=== PATIENT | female | born 1935 | race Caucasian/White ===

== ENCOUNTER 2021-04-13 09:31 | Inpatient (IN) | payer MEDICARE, BC ==
[2021-04-13] VITALS (29 sets, daily range): BP systolic 78–158; BP diastolic 50–87
[~2021-04-13] VITALS: Ht 157.5 cm; Wt 35.8 kg
--- NOTE | ~2021-04-13 | CON ---
[address] [address] CONSULTATION Name: SOSA ARAIZA Room: [address] IN M.R.#: [id number] Admission: 04/13/21 Attend Phys: Mirta Toribio Discharge: Date of : 37 Report #: [id number] THIS REPORT FOR: cc: Bharat Haines MD, Jason MD [place], Roxane S. DO ~ DATE OF CONSULTATION: 04/24/2021 NEUROLOGY CONSULT HISTORY OF PRESENT ILLNESS: The patient is an 85-year-old female we were asked to see in consultation for altered mental status. The day the consult was requested, the patient was noted to have a pCO2 on her blood gas of 116. Now, the patient is on BiPAP, her pCO2 is 70 and she is more responsive. The patient is short of air and cannot provide a history without taking off the BiPAP, which she was not asked to do. The history was obtained from the chart. The patient was admitted to the hospital on 04/13 with tachypnea and a respiratory rate of 40. At that time, her O2 saturation was 50% on 4 liters of oxygen. The patient was admitted and was intubated for approximately 5 days. Even while she was on the ventilator, she appeared to be able to follow simple commands. The patient has been seen by Pulmonary and has been given a diagnosis of acute on chronic hypoxemic and hypercarbic respiratory failure. The patient has been noted to have significant CO2 retention and when the patient had a blood gas done on 04/24 at 12:15 a.m., her pCO2 was 116. This morning, her pCO2 is 70.5. PAST MEDICAL HISTORY: Chronic respiratory failure. PAST SURGICAL HISTORY: Negative. CURRENT MEDICATIONS: Include Eliquis 2.5 mg b.i.d., BuSpar 5 mg t.i.d., diltiazem drip, lactobacillus t.i.d., Prevacid 30 mg at dinner, Xopenex q.8 hours, melatonin 10 mg at bedtime, methylprednisolone 20 mg IV daily. ALLERGIES: None. PHYSICAL EXAMINATION: VITAL SIGNS: Temperature 36.2, pulse rate 79, respiratory rate 20, blood pressure 112/70, bedside pulse oximetry 97% on BiPAP. LABORATORY DATA: Hematology: White blood cell count 7.1, hemoglobin 11.3, hematocrit 35.3, MCV 92.9, platelet count 80,000. INR 1.1. Urinalysis: 2+ protein. Blood gas as of 8:25 a.m., pH 7.387, pCO2 of 70.5, pO2 of 85.2, oxygen saturation 96.1%. ABG as of 04/24 at 12:15 a.m., pH 7.225, pCO2 of 116, pO2 of 42.8, oxygen saturation 76%. [place] [address] CONSULTATION Name: SOSA ARAIAZ Room: [address] IN [facility].#: [id number] Admission: 04/13/21 Attend Phys: Mirta Toribio Discharge: Date of : 37 Report #: [id number] IMAGING: CT scan of the head, no acute intracranial process. Moderate small vessel ischemic disease seen. NEUROLOGIC: Cranial nerves II-XII appear grossly intact. It is difficult to completely assess because the patient is wearing a BiPAP mask and I did not ask her to remove it. She was able to follow command, she was able to lift both her arms up her head. She was able to lift each leg a few inches off the bed. Reflexes were trace throughout. Plantar responses were flexor. She was able to do ggybjb-pg-rfdc, although this was done very slowly, but there was no dysmetria. IMPRESSION AND PLAN: I suspect the patient has returned to her baseline. Her altered mental status was secondary to hypercapnia. This has now been somewhat corrected, although she is not to her preadmission baseline and perhaps this cannot be obtained. I will order a B12, folate. She has already been seen by speech therapy and a cognitive assessment is done. Overall, she presents with a fncm-dq-nqxporlm cognitive dysfunction. As of Sunday morning, Dr. Barrera will be following the patient. By: 0934 Renay Wood DO /naye
[2021-04-13 10:11] LABS: HEMATOCRIT 40.2 % (37.0-47.0); HEMOGLOBIN 13.1 gm/dL (12.0-15.0); MCH 29.9 pg (26.0-34.0); MCHC 32.5 g/dL (28.0-37.0); MCV 91.9 fL (80.0-100.0); NUCLEATED RBCS 0 /100WBC; PLATELET COUNT* 152 thou/uL (150-400); RBC 4.38 mil/uL (4.20-5.00); RDW-CV 14.1 % (10.5-14.5); WBC 4.8 thou/uL (4.0-11.0)
[2021-04-13 10:38] LABS: BE 6.8 mmol/L (-2 to +3); pH 7.382 (7.340-7.450)
[2021-04-13 10:40] LABS: CALCIUM 9.4 mg/dL (8.5-10.1); CREATININE 0.8 mg/dL (0.6-1.3); POTASSIUM 5.4 mmol/L (3.5-5.1)
[2021-04-13 10:42] LABS: PCO2 57.5 mmHg (35.0-45.0)
[2021-04-13 10:43] LABS: PO2 377.9 mmHg (75.0-100.0)
[2021-04-13 10:50] LABS: ALBUMIN 2.9 g/dL (3.4-5.0); MAGNESIUM 2.1 mg/dL (1.8-2.4); TOTAL BILIRUBIN 0.5 mg/dL (<0.1-1.0); TOTAL PROTEIN 8.2 g/dL (6.4-8.2)
[2021-04-13] MEDS ORDERED: [UNRECOGNIZED DRUG - OTHER] INH (10:59)
[2021-04-13] MEDS ORDERED: ANORO ELLIPTA1 EACH INH (11:00)
[2021-04-13] MEDS ORDERED: DILTIAZEM ER180 M2 PO (11:00)
[2021-04-13] MEDS ORDERED: EFFER-K 10 MEQ10 ME1 PO (11:00)
[2021-04-13 11:15] LABS: ABSOLUTE LYMPHOCYTES 0.1 thou/uL (0.8-5.3); ABSOLUTE MONOCYTES 0.3 thou/uL (0.0-1.2); ABSOLUTE NEUTROPHILS 4.4 thou/uL (1.6-8.1)
[2021-04-13 11:16] LABS: PLATELET ESTIMATE ADEQUATE
[2021-04-13 11:53] LABS: URINE BILIRUBIN NEGATIVE (Negative); URINE BLOOD NEGATIVE (Negative); URINE CLARITY CLEAR; URINE COLOR YELLOW; URINE GLUCOSE-RANDOM NEGATIVE (Negative); URINE KETONES NEGATIVE (Negative); URINE LEUKOCYTES-REFLEX NEGATIVE (Negative); URINE NITRITE-REFLEX NEGATIVE (Negative); URINE PROTEIN 2+ (Negative); URINE SPECIFIC GRAVITY >= 1.030 (1.005-1.030)
[2021-04-13 12:09] LABS: BACTERIA-REFLEX >30 Many /HPF (None Seen); MUCUS 4-6 Moderate strn/LPF (None Seen); SQUAMOUS 0-3 Few /LPF (0-3); URINE RBC None Seen /HPF (0-2); URINE WBC-REFLEX 0-5 Rare /HPF (0-5)
[2021-04-13 12:10] LABS: CASTS None Seen /LPF (None Seen); CRYSTALS None Seen /LPF (None Seen); HYALINE CASTS 4-10 Moderate /LPF (None Seen)
--- NOTE | 2021-04-13 12:20 | NUR ---
CENTRAL LINE TIME OUT [address] TAPIA AND 2 PATIENT IDENTIFIER'S USED, CONSENT SIGNED BY DPOA. DURING PROCEDURE, PT DESAT, SWITCHED FROM VENTILATOR TO BVM. NEW ET TUBE PLACEMENT AT 1155. CENTRAL LINE ATTEMPT WAS STOPPED AT THAT TIME. CENTRAL LINE TIME OUT X2 AT [address] TAPIA RN WITH 2 PATIENT IDENTIFIERS. STERILE PROCEDURE MAINTAINED PER DR SOUZA. SITE RIGHT FEMEROL. STERILE TRANSPARENT DRESSING APPLIED.
--- NOTE | 2021-04-13 14:23 | EKG ---
[place] [address] ELECTROCARDIOGRAM REPORT Name: SOSA ARAIZA Room: [address] IN .R.#: [id number] Admission: 04/13/21 Attend Phys: Triston Maya Discharge: Date of : 37 Date of Service: 04/13/21 0944 Report #: [id number] THIS REPORT FOR: //name// [facility] ED Test Date: 2021-04-13 Test Time: 09:44:23 Pat Name: SOSA ARAIZA Department: Room: [facility] Gender: F Handle Turner: : 1935 Requested By: Jose A Ramos Order Number: [id number] MD: Carl Villegas Measurements Intervals [place] Rate: 112 P: 34 [place]: 166 QRS: 45 QRSD: 129 T: 75 QT: 356 QTc: 486 Interpretive Statements Sinus tachycardia Left bundle branch block Baseline wander in lead(s) V3 No previous ECG available for comparison Electronically Signed On 04-13-2021 14:23:07 SERVICE CASHIER by Carl Villegas [email or web address] <ELECTRONICALLY SIGNED> By: Carl Villegas MD, FACC 04/13/21 1423 0944 0944 Carl Villegas MD, [facility] /EPI
--- NOTE | 2021-04-13 15:36 | 2DMMODE ---
[place] [address] 2 D/M-MODE ECHOCARDIOGRAM Name: SOSA ARAIZA Daniel Room: [facility] IN .R.#: [id number] Admission: 04/13/21 Attend Phys: Triston Maya Discharge: Date of : 37 Date of Service: 04/13/21 1536 Report #: [id number] THIS REPORT FOR: cc: Bharat Haines MD, Jason MD Holkins,Carl Taylor MD [facility] ~ APPROVED REPORT Study performed: 04/13/2021 14:17:02 EXAM: Comprehensive 2D, Doppler, and color-flow Echocardiogram Patient Location: In-Patient Room #: 003 Status: routine BSA: 1.36 HR: 87 bpm BP: 89/64 mmHg Rhythm: NSR Other Information Study Quality: Adequate Technically limited study due to OFF AXIS APICALS. Indications RESP FAILURE 2D Dimensions IVSd: 9.71 (7-11mm) LVOT Diam: 21.97 (18-24mm) LVDd: 34.86 mm PWd: 9.22 (7-11mm) LVDs: 28.32 (25-40mm) Aortic Root: 30.62 mm Volumes Left Atrial Volume (Systole) LA ESV Index: 27.80 mL/m2 Aortic Valve AoV Peak Harry.: 1.86 m/s AO Peak Gr.: 13.90 mmHg LVOT Max P.28 mmHg AO Mean Gr.: 8.38 mmHg LVOT Mean P.63 mmHg LVOT Max V: 0.57 m/s AO V2 VTI: 32.88 cm LVOT Mean V: 0.37 m/s IGNACIO (VTI): 1.08 cm2 LVOT V1 VTI: 9.38 [place] [address] 2 D/M-MODE ECHOCARDIOGRAM Name: SOSA ARAIZA Room: [address] IN ..#: [id number] Admission: 04/13/21 Attend Phys: Triston Maya Discharge: Date of : 37 Date of Service: 04/13/21 1536 Report #: [id number] Mitral Valve E/A Ratio: 0.71 MV Decel. Time: 205.12 ms MV E Max Harry.: 0.63 m/s MV PHT: 59.49 ms MVA (PHT): 3.70 cm2 Pulmonary Valve PV Peak Harry.: 0.61 m/s PV Peak Gr.: 1.46 mmHg Tricuspid Valve RAP Estimate: 5.00 mmHg TR Peak Gr.: 16.80 mmHg RVSP: 21.00 mmHg PA Pressure: 21.00 mmHg Left Ventricle The left ventricle is normal size. There is a septal wall motion abnormality compatible with left bundle branch block conduction disturbance. Mild to moderate concentric left ventricular hypertrophy. Left ventricular systolic function is mildly decreased. LVEF is 45%. Grade I - abnormal relaxation pattern. Right Ventricle Right ventricle is mildly dilated. The right ventricular systolic function is normal. Atria The left atrium size is normal. Right atrium is dilated. Aortic Valve Moderate aortic valve sclerosis. Mild aortic regurgitation. Mild aortic stenosis. Mitral Valve The mitral valve is normal in structure. Trace mitral regurgitation. No evidence of mitral valve stenosis. Tricuspid Valve The tricuspid valve is normal in structure. Mild tricuspid regurgitation. No pulmonary hypertension. Pulmonic Valve The pulmonary valve is normal in structure. There is no pulmonic [place] [address] 2 D/M-MODE ECHOCARDIOGRAM Name: SOSA ARAIZA Room: [address] IN [facility].#: [id number] Admission: 04/13/21 Attend Phys: Triston Maya Discharge: Date of : 37 Date of Service: 04/13/21 1536 Report #: [id number] Great Vessels The aortic root is normal in size. IVC is normal in size and collapses >50% with inspiration. Pericardium There is no pericardial effusion. <Conclusion> The left ventricle is normal size. Mild to moderate concentric left ventricular hypertrophy. Left ventricular systolic function is mildly decreased. LVEF is 45%. Grade I - abnormal relaxation pattern. Right ventricle is mildly dilated. The left atrium size is normal. Moderate aortic valve sclerosis. Mild aortic regurgitation. Mild aortic stenosis. The mitral valve is normal in structure. Trace mitral regurgitation. The tricuspid valve is normal in structure. Mild tricuspid regurgitation. No pulmonary hypertension. IVC is normal in size and collapses >50% with inspiration. There is no pericardial effusion. There is a septal wall motion abnormality compatible with left bundle branch block conduction disturbance. <ELECTRONICALLY SIGNED> By: Carl Villegas MD, FACC 04/13/21 1536 1536 1536 Carl Villegas MD, FACC /INF
[2021-04-13 16:19] LABS: INFLUENZA A ANTIGEN Negative (Negative); INFLUENZA B ANTIGEN Negative (Negative)
[2021-04-13 17:16] LABS: APTT 29.8 Seconds (25.0-31.3); INR 1.1; PROTIME 11.4 Seconds (9.20-11.50)
[2021-04-13 17:18] LABS: ALBUMIN 2.2 g/dL (3.4-5.0); CALCIUM 7.9 mg/dL (8.5-10.1); CREATININE 0.6 mg/dL (0.6-1.3); MAGNESIUM 1.7 mg/dL (1.8-2.4); POTASSIUM 4.7 mmol/L (3.5-5.1); TOTAL BILIRUBIN 0.7 mg/dL (<0.1-1.0); TOTAL PROTEIN 6.1 g/dL (6.4-8.2)
[2021-04-13 17:24] LABS: BE 11.2 mmol/L (-2 to +3); PCO2 46.9 mmHg (35.0-45.0); PO2 97.3 mmHg (75.0-100.0); pH 7.501 (7.340-7.450)
[2021-04-14] VITALS (68 sets, daily range): BP systolic 101–151; BP diastolic 59–89
[2021-04-14 06:43] LABS: ABSOLUTE LYMPHOCYTES 0.2 thou/uL (0.8-5.3); ABSOLUTE MONOCYTES 0.3 thou/uL (0.0-1.2); ABSOLUTE NEUTROPHILS 7.7 thou/uL (1.6-8.1); BASOPHILS 0.2 %; HEMATOCRIT 33.5 % (37.0-47.0); LYMPHOCYTES 2.7 %; MCH 29.9 pg (26.0-34.0); MCHC 33.2 g/dL (28.0-37.0); MCV 90.2 fL (80.0-100.0); MONOCYTES 3.8 %; MPV 8.8 fl. (7.2-11.1); NUCLEATED RBCS 0 /100WBC; PLATELET COUNT* 137 thou/uL (150-400); POLYS 93.3 %; RBC 3.71 mil/uL (4.20-5.00); RDW-CV 14.1 % (10.5-14.5); WBC 8.2 thou/uL (4.0-11.0)
[2021-04-14 06:52] LABS: HEMOGLOBIN 11.1 gm/dL (12.0-15.0)
[2021-04-14 07:01] LABS: ALBUMIN 1.9 g/dL (3.4-5.0); CALCIUM 8.3 mg/dL (8.5-10.1); CREATININE 0.6 mg/dL (0.6-1.3); MAGNESIUM 2.1 mg/dL (1.8-2.4); POTASSIUM 3.4 mmol/L (3.5-5.1); TOTAL BILIRUBIN 0.3 mg/dL (<0.1-1.0); TOTAL PROTEIN 5.9 g/dL (6.4-8.2)
[2021-04-14 07:51] LABS: BE 8.7 mmol/L (-2 to +3); PO2 84.7 mmHg (75.0-100.0); pH 7.401 (7.340-7.450)
[2021-04-14 07:54] LABS: PCO2 58.3 mmHg (35.0-45.0)
--- NOTE | 2021-04-14 11:31 | CON ---
[address] [address] CONSULTATION Name: SOSA ARAIZA Room: [address] IN M.R.#: [id number] Admission: 04/13/21 Attend Phys: Mirta Toribio Discharge: Date of : 37 Report #: [id number] THIS REPORT FOR: cc: Bharat Haines MD, Jason MD Pervez, Adeel MD ~ DATE OF CONSULTATION: 04/13/2021 REQUESTING PHYSICIAN: Chico Barajas MD INDICATION FOR CONSULTATION: Vytyt-dq-ihdxjru hypoxemic respiratory failure. HISTORY OF PRESENT ILLNESS: This is an 85-year-old female. There is limited information available regarding her past medical history. The patient is reported to have had pneumonia a few months ago and since then has been on oxygen. She is also reported to have had COVID-19 vaccine. I do not have details available. Her home medications as well as arterial blood gases are consistent with chronic hypercarbic respiratory failure secondary to COPD; however, I do not see any definite documentation of this on her records. The patient is now admitted with acute shortness of breath as well as unresponsiveness. The patient is reported to have had increasing shortness of breath as well as significant sputum production for the last 3 days prior to admission. The patient required to be endotracheally intubated upon presentation. Currently, she is on 45% FiO2 on the ventilator. She is oxygenating and ventilating adequately. The patient, however, does have florid infiltrates on her chest x-ray. She is sedated with Versed and therefore she is not able to provide any further history or review of systems. PAST MEDICAL HISTORY: Pneumonia few months ago and use of oxygen since then. She has use of Anoro at home, which will be consistent with diagnosis of COPD, but this is not documented on the records. The patient initially did have a normal pH with a significant elevation in pCO2 to 58, this will be consistent with chronic hypercarbic respiratory failure, again not documented on the records. There is also use of diltiazem at home for reasons not known at this time. We just performed an echo, it does show left ventricular ejection fraction decreased to around 45%, pulmonary artery systolic of 21. Her baseline creatinine is normal at less than 1. CURRENT MEDICATIONS: List in Clink reviewed. HOME MEDICATIONS: List also in Clink reviewed. Also, see discussion above. SOCIAL HISTORY: [place] [address] CONSULTATION Name: SOSA ARAIZA Room: [address] IN [facility]#: [id number] Admission: 04/13/21 Attend Phys: Mirta Toribio Discharge: Date of : 36 Report #: [id number] ALLERGIES: No known drug allergies. FAMILY HISTORY: No pertinent family history. PHYSICAL EXAMINATION: GENERAL: She is sedated with Versed drip at 8. VITAL SIGNS: Pulse 77, blood pressure 114/70, saturating 100%, 45% FiO2. 5 of PEEP, ventilator settings and sedation are reviewed. Tidal volume is 400. AC rate ____. She is not overbreathing. She is afebrile with a temperature of 36.2. HEENT: Head is normocephalic and atraumatic. Pupils are equal. Endotracheal tube in good position. NECK: Does not show raised JVP, asymmetry, mass or lymph nodes. CHEST: Symmetrical expansion on inspection and palpation. On auscultation, breath sounds are bilaterally equal, but decreased. No added sounds. HEART: Regular. There is no murmur. ABDOMEN: Soft and nontender. EXTREMITIES: Lower extremities show no edema, no calf tenderness. SKIN: Dry and intact. NEUROLOGIC: Moves all extremities bilaterally equally and spontaneously with no focal deficit identified. LABORATORY DATA: The patient's lab work as well as chest x-rays and CTA chest as well as a CT head are in [facility] and these are reviewed. ASSESSMENT/PLAN: 1. Fkkwq-if-zcxufsp hypoxemic and hypercarbic respiratory failure. We will cut back on AC rate. We will start a fentanyl drip and we will start cutting back on Versed and then reassess tomorrow. 2. Extensive pulmonary infiltrates. She reported to have had vaccination for COVID-19; however, I feel that this still needs to be ruled out. Recommend checking PCR. Antigen was negative. We will also send her other cultures and serologies that she is already on a steroid. Recommend giving remdesivir until is clarified as to whether she has COVID. She has significant bandemia, although WBC count was normal. Therefore, we will initially start with broad-spectrum antibiotics. She already received one dose of Levaquin and is on Zosyn. Therefore, I ordered linezolid. I considered vancomycin initially, but she is already on Zosyn and she also received IV dye. Therefore, decided on linezolid. We will reassess tomorrow. She has had atypical coverage with Levaquin today, we will consider adding additional atypical coverage tomorrow. 3. Chronic obstructive pulmonary disease exacerbation. Agree with Solu-Medrol and nebulized bronchodilators. 4. Systolic congestive heart failure, left ventricular ejection fraction is decreased to 45. Not known to me as to whether this is new or old. Regardless, [address] [address] CONSULTATION Name: SOSA ARAIZA Room: [address] IN .R.#: [id number] Admission: 04/13/21 Attend Phys: Mirta Toribio Discharge: Date of : 37 Report #: [id number] she is ventilating and oxygenating adequately for now. Therefore for now, continued with normal saline ordered in the ER at 100 an hour. She likely will need fluids discontinued later on and if her pCO2 is elevated tomorrow, then I may consider diuresis with Diamox provided her pH is normal. 5. Evaluation for thromboembolic phenomena. CTA chest is negative. We will also do venous Dopplers. She is on prophylactic dose Lovenox. 6. Gastrointestinal prophylaxis, Protonix. 7. Clostridium difficile prophylaxis. We will start Lactinex. 8. Blood glucose monitoring already on an insulin sliding scale. The patient is critically ill at this time. Total time spent providing critical care to this patient today exceeds 40 minutes. <ELECTRONICALLY SIGNED> By: Angel Lay MD 04/14/21 1131 [id number] Lay MD /nt
--- NOTE | 2021-04-14 14:24 | NUR ---
Attempted assessment x2. No family present in the room and pt is sedated. Only phone numbers in the chart are patient's home phone number. Called and left a message on patient's home phone to see if family lives with her and provided this environmental emergencies planner's contact info. Spoke with nurse who didn't have any further additional contact information and agreed if family called to obtain current contact information. Both daughter - Loyda Wolfe and Son - Flavio Cho have the same number as patient. CM to continue to follow for discharge planning.
[2021-04-14 17:32] LABS: ABSOLUTE LYMPHOCYTES 0.2 thou/uL (0.8-5.3); ABSOLUTE MONOCYTES 0.3 thou/uL (0.0-1.2); ABSOLUTE NEUTROPHILS 9.2 thou/uL (1.6-8.1); BASOPHILS 0.2 %; HEMATOCRIT 35.4 % (37.0-47.0); HEMOGLOBIN 11.4 gm/dL (12.0-15.0); LYMPHOCYTES 2.4 %; MCH 29.5 pg (26.0-34.0); MCHC 32.3 g/dL (28.0-37.0); MCV 91.3 fL (80.0-100.0); MONOCYTES 3.3 %; MPV 8.5 fl. (7.2-11.1); NUCLEATED RBCS 0 /100WBC; PLATELET COUNT* 152 thou/uL (150-400); POLYS 94.1 %; RBC 3.88 mil/uL (4.20-5.00); RDW-CV 14.1 % (10.5-14.5); WBC 9.8 thou/uL (4.0-11.0)
[2021-04-14 17:42] LABS: CALCIUM 8.7 mg/dL (8.5-10.1); CREATININE 0.6 mg/dL (0.6-1.3); MAGNESIUM 2.1 mg/dL (1.8-2.4)
[2021-04-15] VITALS (58 sets, daily range): BP systolic 95–156; BP diastolic 41–98
[2021-04-15 03:12] LABS: ABSOLUTE LYMPHOCYTES 0.2 thou/uL (0.8-5.3); ABSOLUTE MONOCYTES 0.1 thou/uL (0.0-1.2); ABSOLUTE NEUTROPHILS 5.5 thou/uL (1.6-8.1); EOSINOPHILS 0.1 %; HEMATOCRIT 32.9 % (37.0-47.0); HEMOGLOBIN 10.8 gm/dL (12.0-15.0); LYMPHOCYTES 3.5 %; MCH 30.2 pg (26.0-34.0); MCHC 32.9 g/dL (28.0-37.0); MCV 91.7 fL (80.0-100.0); MONOCYTES 2.5 %; MPV 8.9 fl. (7.2-11.1); NUCLEATED RBCS 0 /100WBC; PLATELET COUNT* 129 thou/uL (150-400); POLYS 93.9 %; RBC 3.59 mil/uL (4.20-5.00); RDW-CV 14.1 % (10.5-14.5); WBC 5.9 thou/uL (4.0-11.0)
[2021-04-15 05:43] LABS: ALBUMIN 2.6 g/dL (3.4-5.0); CALCIUM 8.5 mg/dL (8.5-10.1); CREATININE 0.6 mg/dL (0.6-1.3); MAGNESIUM 1.9 mg/dL (1.8-2.4); POTASSIUM 3.3 mmol/L (3.5-5.1); TOTAL BILIRUBIN 0.4 mg/dL (<0.1-1.0); TOTAL PROTEIN 5.9 g/dL (6.4-8.2)
[2021-04-15 08:55] LABS: BE 8.6 mmol/L (-2 to +3); PO2 82.2 mmHg (75.0-100.0); pH 7.394 (7.340-7.450)
[2021-04-15 08:59] LABS: PCO2 59.1 mmHg (35.0-45.0)
[2021-04-15 11:39] LABS: CALCIUM 8.8 mg/dL (8.5-10.1); CREATININE 0.6 mg/dL (0.6-1.3); POTASSIUM 3.3 mmol/L (3.5-5.1)
--- NOTE | 2021-04-15 15:09 | NUR ---
We continue to have difficulty contacting family to complete assessment. Checked pt's room x2 today with no family present. Discussed with nurse - they are reporting they have not seen family since patient was admitted and have not received a phone call from family. Requested if family calls to obtain updated contact information. Pt continues to be on a vent. CM to continue to attempt to contact family to complete assessment and to follow for discharge needs.
[2021-04-16] VITALS (17 sets, daily range): BP systolic 95–158; BP diastolic 55–94
[2021-04-16 05:10] LABS: HEMATOCRIT 34.4 % (37.0-47.0); HEMOGLOBIN 11.3 gm/dL (12.0-15.0); MCH 29.7 pg (26.0-34.0); MCHC 32.8 g/dL (28.0-37.0); MCV 90.5 fL (80.0-100.0); MPV 8.9 fl. (7.2-11.1); NUCLEATED RBCS 0 /100WBC; PLATELET COUNT* 162 thou/uL (150-400); RBC 3.81 mil/uL (4.20-5.00); RDW-CV 14.3 % (10.5-14.5); WBC 8.7 thou/uL (4.0-11.0)
[2021-04-16 05:16] LABS: ALBUMIN 2.7 g/dL (3.4-5.0); CALCIUM 8.8 mg/dL (8.5-10.1); CREATININE 0.5 mg/dL (0.6-1.3); POTASSIUM 3.1 mmol/L (3.5-5.1); TOTAL BILIRUBIN 0.3 mg/dL (<0.1-1.0); TOTAL PROTEIN 6.2 g/dL (6.4-8.2)
[2021-04-16 06:59] LABS: ABSOLUTE LYMPHOCYTES 0.3 thou/uL (0.8-5.3); ABSOLUTE MONOCYTES 0.5 thou/uL (0.0-1.2); ABSOLUTE NEUTROPHILS 7.9 thou/uL (1.6-8.1)
[2021-04-16 07:00] LABS: GIANT PLATELETS OCCASIONAL; PLATELET ESTIMATE ADEQUATE
[2021-04-16 13:23] LABS: BE 11.1 mmol/L (-2 to +3); pH 7.331 (7.340-7.450)
[2021-04-16 13:26] LABS: PCO2 77.1 mmHg (35.0-45.0)
[2021-04-16 18:46] LABS: ANION GAP < 0 mmol/L (7-16); BUN 18 mg/dL (7-18); CALCIUM 8.4 mg/dL (8.5-10.1); CHLORIDE 97 mmol/L (98-107); CO2 42 mmol/L (21-32); CREATININE 0.5 mg/dL (0.6-1.3); GLUCOSE 156 mg/dL (70-99); POTASSIUM 3.1 mmol/L (3.5-5.1); SODIUM 138 mmol/L (136-145)
[2021-04-17] VITALS (28 sets, daily range): BP systolic 77–188; BP diastolic 49–119
[2021-04-17 02:50] LABS: ABSOLUTE LYMPHOCYTES 0.2 thou/uL (0.8-5.3); ABSOLUTE MONOCYTES 0.2 thou/uL (0.0-1.2); BASOPHILS 0.1 %; NUCLEATED RBCS 0 /100WBC; WBC 5.5 thou/uL (4.0-11.0)
[2021-04-17 02:51] LABS: HEMATOCRIT 33.4 % (37.0-47.0); LYMPHOCYTES 3.9 %; MCH 29.9 pg (26.0-34.0); MCV 90.8 fL (80.0-100.0); MONOCYTES 4.3 %; MPV 8.3 fl. (7.2-11.1); PLATELET COUNT* 133 thou/uL (150-400); POLYS 91.7 %; RBC 3.68 mil/uL (4.20-5.00); RDW-CV 14.2 % (10.5-14.5)
[2021-04-17 03:08] LABS: ALBUMIN 2.4 g/dL (3.4-5.0); CALCIUM 8.4 mg/dL (8.5-10.1); CREATININE 0.4 mg/dL (0.6-1.3); POTASSIUM 3.3 mmol/L (3.5-5.1); TOTAL BILIRUBIN 0.3 mg/dL (<0.1-1.0); TOTAL PROTEIN 5.8 g/dL (6.4-8.2)
[2021-04-17 03:19] LABS: PREALBUMIN 12.6 mg/dL (18.0-35.7)
[2021-04-17 06:18] LABS: MAGNESIUM 1.7 mg/dL (1.8-2.4); PHOSPHORUS* 2.4 mg/dL (2.5-4.9)
--- NOTE | 2021-04-17 06:46 | NUR ---
PT REMAINS ON VENTILATOR, INTUBATED AND SEDATED. MEDICATIONS ADMINISTERED PRESCRIBED. NO ACUTE CHANGES THIS SHIFT.
[2021-04-17 11:41] LABS: BE 8.1 mmol/L (-2 to +3); PO2 89.3 mmHg (75.0-100.0); pH 7.328 (7.340-7.450)
[2021-04-17 11:45] LABS: PCO2 71.3 mmHg (35.0-45.0)
[2021-04-17 12:06] LABS: MYCOPLASMA PNEUMONIA IgM <770 U/mL (0-769)
[2021-04-17 14:06] LABS: MYCOPLASMA PNEUMONIA IgG <100 U/mL (0-99)
[2021-04-17 15:41] LABS: MAGNESIUM 1.8 mg/dL (1.8-2.4)
[2021-04-17 15:42] LABS: POTASSIUM 5.6 mmol/L (3.5-5.1)
--- NOTE | 2021-04-17 19:28 | NUR ---
PT EXTUBATED AT 1239. SHE DE-SATED AROUND 1400 AND WAS PLACED ON THE BIPAP. PT TACHYCARDIC AND TACHYPNEIC AFTER EXTUBATION. SPOKE TO DR. DUVAL ABOUT IT. HE ENCOURAGED THE PRECEDEX GTT TO BE TURNED UP. BETWEEN THAT AND THE ATIVAN PRN PUSHES, PT VS ARE NOW MUCH MORE STABLE.
[2021-04-18] VITALS (32 sets, daily range): BP systolic 114–159; BP diastolic 55–99
[2021-04-18 04:51] LABS: ABSOLUTE LYMPHOCYTES 0.3 thou/uL (0.8-5.3); ABSOLUTE MONOCYTES 0.2 thou/uL (0.0-1.2); ABSOLUTE NEUTROPHILS 5.6 thou/uL (1.6-8.1); BASOPHILS 0.2 %; EOSINOPHILS 0.1 %; HEMATOCRIT 34.4 % (37.0-47.0); HEMOGLOBIN 11.2 gm/dL (12.0-15.0); LYMPHOCYTES 4.8 %; MCH 29.5 pg (26.0-34.0); MCHC 32.5 g/dL (28.0-37.0); MCV 90.7 fL (80.0-100.0); NUCLEATED RBCS 0 /100WBC; PLATELET COUNT* 133 thou/uL (150-400); POLYS 91.9 %; RBC 3.79 mil/uL (4.20-5.00); RDW-CV 14.2 % (10.5-14.5); WBC 6.1 thou/uL (4.0-11.0)
[2021-04-18 04:59] LABS: ALBUMIN 2.2 g/dL (3.4-5.0); ALKALINE PHOSPHATASE 63 U/L (46-116); ANION GAP < 0 mmol/L (7-16); BUN 14 mg/dL (7-18); CALCIUM 8.6 mg/dL (8.5-10.1); CHLORIDE 96 mmol/L (98-107); CO2 43 mmol/L (21-32); CREATININE 0.4 mg/dL (0.6-1.3); GLUCOSE 128 mg/dL (70-99); MAGNESIUM 1.7 mg/dL (1.8-2.4); SGOT 69 U/L (15-37); SGPT 131 U/L (30-65); SODIUM 138 mmol/L (136-145); TOTAL BILIRUBIN 0.4 mg/dL (<0.1-1.0); TOTAL PROTEIN 5.6 g/dL (6.4-8.2)
[2021-04-18 05:20] LABS: POTASSIUM 4.2 mmol/L (3.5-5.1)
--- NOTE | 2021-04-18 06:20 | NUR ---
PT BECAME ANXIOUS INTERMITTENTLY DURING THE NOC. THERAPEUTIC COMMUNICATION ATTEMPTED TO HELP DECREASE PT'S ANXIETY. MEDICATIONS ADMINISTERED PRESCRIBED. PT'S ANXIETY NEEDS MET W/ MEDICATIONS. PT REMAINS ON BIPAP. NO ACUTE CHANGES THIS SHIFT.
--- NOTE | 2021-04-18 08:30 | NUR ---
Spoke to patient son/emergency contact (Flavio [phone]) over the phone due to patient being on bipap and very anxious. Completed initial CM assessment with son. Per son, prior to admission patient was living with him and his sister in a house. Stairs in the home but per son, patient does not have any difficulty using them if needed. For long distances, patient will use a wheelchair. Patient is independent with ADLS. Per son, patient uses 2L NC. No hx of bipap/cpap. Son does not recall name of [employer] company. No hx of dialysis, infusion therapy, BHS, SNF or rehab. Hx of HH x1 month ago. Son does not recall name of HH agency. Per son, patient sees an PATROL CONDUCTOR for Dr. Smith (located in [facility]-does not recall PATROL CONDUCTOR's name or name of [facility] practice). Advised that now that patient has been extubated, therapies will need to see patient to help determine strength and mobility status. Son open to SNF, ARU or HH depending on what patient needs. Plan of care: Patient extubated 04/17 and is on bipap. Plan to transition to NC. Precedex gtt off. Therapies to be ordered. CM to continue to follow
[2021-04-18 12:10] LABS: BE 11.8 mmol/L (-2 to +3); PCO2 VENOUS 70.9 mmHg (41.0-51.0); PO2 VENOUS 71.8 mmHg (35.0-45.0)
[2021-04-19] VITALS (22 sets, daily range): BP systolic 92–160; BP diastolic 58–114
[2021-04-19 06:05] LABS: HEMATOCRIT 35.1 % (37.0-47.0); HEMOGLOBIN 11.5 gm/dL (12.0-15.0); MCH 29.5 pg (26.0-34.0); MCHC 32.8 g/dL (28.0-37.0); MCV 89.8 fL (80.0-100.0); MPV 8.5 fl. (7.2-11.1); NUCLEATED RBCS 0 /100WBC; PLATELET COUNT* 155 thou/uL (150-400); RBC 3.91 mil/uL (4.20-5.00); RDW-CV 14.2 % (10.5-14.5)
[2021-04-19 06:16] LABS: ALBUMIN 2.5 g/dL (3.4-5.0); ALKALINE PHOSPHATASE 61 U/L (46-116); BUN 13 mg/dL (7-18); CALCIUM 8.5 mg/dL (8.5-10.1); CHLORIDE 93 mmol/L (98-107); CREATININE 0.4 mg/dL (0.6-1.3); GLUCOSE 119 mg/dL (70-99); MAGNESIUM 2.1 mg/dL (1.8-2.4); POTASSIUM 3.6 mmol/L (3.5-5.1); SGOT 44 U/L (15-37); SGPT 115 U/L (30-65); SODIUM 140 mmol/L (136-145); TOTAL BILIRUBIN 0.5 mg/dL (<0.1-1.0); TOTAL PROTEIN 5.9 g/dL (6.4-8.2)
[2021-04-19 06:22] LABS: CO2 > 45 mmol/L (21-32)
[2021-04-19 07:15] LABS: ABSOLUTE LYMPHOCYTES 0.4 thou/uL (0.8-5.3); ABSOLUTE MONOCYTES 0.5 thou/uL (0.0-1.2); ABSOLUTE NEUTROPHILS 6.2 thou/uL (1.6-8.1); CLUMPED PLTS OCCASIONAL
--- NOTE | 2021-04-19 20:12 | NUR ---
PT REFUSED AEROSOL AND BIPAP
[2021-04-20] VITALS (25 sets, daily range): BP systolic 83–176; BP diastolic 51–122
[2021-04-20 05:57] LABS: ABSOLUTE EOSINOPHILS 0.1 thou/uL (0.0-0.7); ABSOLUTE LYMPHOCYTES 0.8 thou/uL (0.8-5.3); ABSOLUTE MONOCYTES 0.7 thou/uL (0.0-1.2); ABSOLUTE NEUTROPHILS 6.8 thou/uL (1.6-8.1); BASOPHILS 0.1 %; HEMATOCRIT 37.6 % (37.0-47.0); HEMOGLOBIN 12.5 gm/dL (12.0-15.0); LYMPHOCYTES 9.9 %; MCH 29.7 pg (26.0-34.0); MCHC 33.2 g/dL (28.0-37.0); MCV 89.3 fL (80.0-100.0); MONOCYTES 8.5 %; MPV 8.6 fl. (7.2-11.1); NUCLEATED RBCS 0 /100WBC; PLATELET COUNT* 170 thou/uL (150-400); POLYS 80.5 %; RBC 4.21 mil/uL (4.20-5.00); RDW-CV 14.1 % (10.5-14.5); WBC 8.4 thou/uL (4.0-11.0)
[2021-04-20 06:26] LABS: ALBUMIN 2.7 g/dL (3.4-5.0); CALCIUM 8.7 mg/dL (8.5-10.1); CREATININE 0.4 mg/dL (0.6-1.3); POTASSIUM 3.1 mmol/L (3.5-5.1)
[2021-04-20 06:51] LABS: TOTAL BILIRUBIN 0.8 mg/dL (<0.1-1.0)
[2021-04-20 06:52] LABS: TOTAL PROTEIN 6.5 g/dL (6.4-8.2)
--- NOTE | 2021-04-20 14:30 | NUR ---
ASSUMED CARE OF PT. AGREE W/PREVIOUS NURSES' ASSESSMENT. PT IS ALERT TO SELF AND PLACE BUT RESTLESS, TACHYPNEIC, AND TACHYCARDIC. REMAINS ON PRECEDEX GTT.
--- NOTE | 2021-04-20 16:00 | NUR ---
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 PT ON PRECEDEX AT 0.2 MCG/KG/HR. INCREASED PRECEDEX TO 0.5 MCG/KG/HR W/NO EFFECT ON HR OR RESPIRATIONS. DIEGO CARE GIVEN, LINENS CHANGED, PT REPOSITIONED FOR COMFORT. MUCH REASSURANCE PROVIDED TO PT TO DEEP BREATHE. SATS IN THE UPPER 80'S, PT ALSO GIVEN HALDOL W/VERY MINIMAL EFFECT. PT INCREASED TO 3L PER NC W/SATS REBOUNDING TO ABOUT 92%. PRECEDEX CURRENTLY INFUSING AT 1.5 MCG/KG/HR TO HELP W/PT'S RESTLESSNESS, TACHYPNEA, AND TACHYCARDIA. CURRENTLY AT TIME OF CHARTING, PRECEDEX IS NOW 1.5 MCG/KG/HR. PT DENIES PAIN.
--- NOTE | 2021-04-20 18:23 | NUR ---
OUTCOME SUMMARY: NO REAL PROGRESSION TOWARDS GOALS IN THE 4 HOURS THIS NURSE HAD PT. PRECEDEX GTT HAD TO BE INCREASED D/T PT'S RESTLESSNESS AND HIGH ANXIETY EVIDENCED BY TACHYPNEA AND TACHYCARDIA. OVERALL PROGNOSIS: POOR. PT MAY BENEFIT FROM HOSPICE?? UNABLE TO TITRATE OFF PRECEDEX THIS SHIFT.
--- NOTE | 2021-04-20 18:41 | NUR ---
I ASSUMED CARE OF THE PATIENT AT 0800. SHE IS ALERT AND ORIENTED X4 AND IS ON BEDREST. BED IS IN THE LOW LOCKED POSITION AND CALL LIGHT IS IN REACH. PATIENT NEEDS ARE MET ON HOURLY ROUNDING AND PAIN IS DENIED. SON IS AT THE BEDSIDE PART OF THE DAY. PATIENT IS NOT TITRATING WELL OFF OF THE PRECEDEX, BUT DOC WANTS TO AVOID BENZO'S. GROIN SITE IS C/D/I. SHE IS ALLOWED A PUREED DIET AND NECTAR THICK LIQUIDS, BUT SHE REFUSES TO EAT. SHE USES AN ORAL SWAB TO DRINK CRANBERRY JUICE AND WATER (THICKIT IS ON THE COUNTER). PALACIOS IS IN PLACE WITH ADEQUATE DRAINAGE. PRN HALDOL IS GIVEN DURING TITRATION. SHE IS REPOSITIONED EVERY 2 HOURS AND BED IS IN TURN MODE. REPORT GIVEN TO ANGELA.
[2021-04-21] VITALS (23 sets, daily range): BP systolic 70–150; BP diastolic 45–84
--- NOTE | 2021-04-21 04:17 | NUR ---
ASSUMED CARE AT 1900H, ON NC AT 3LPM AND WITH TACHYPNEA WHEN ANXIOUS. ON PRECEDEX MAX DOSE. STILL CONFUSED BUT COOPERATIVE. ON BIPAP PAST MIDNIGHT, AND TOLERATED. NO FEVER NOTED. CONTINUE MONITORING AND TOWARDS GOALS. PRECEDEX AT 1.3MICS.
[2021-04-21 06:42] LABS: HEMATOCRIT 34.2 % (37.0-47.0); HEMOGLOBIN 11.3 gm/dL (12.0-15.0); MCH 29.4 pg (26.0-34.0); MCHC 33.1 g/dL (28.0-37.0); MCV 88.8 fL (80.0-100.0); MPV 8.4 fl. (7.2-11.1); RBC 3.85 mil/uL (4.20-5.00); RDW-CV 14.2 % (10.5-14.5)
[2021-04-21 06:53] LABS: CREATININE 0.6 mg/dL (0.6-1.3); POTASSIUM 3.9 mmol/L (3.5-5.1)
--- NOTE | 2021-04-21 17:04 | NUR ---
Pt continues to be in the ICU. They have been attempting to wean pt off the Precedex but pt then becomes tachycardic. Doctors are recommending Bipap at night -however patient has not been compliant with her being confused. Pt is utlizing 3 liters of oxygen NC. Pt is currently on nectar thick diet. Anticipate patient will likely need SNF at discharge. CM to follow for dicharge planning.
[2021-04-22] VITALS (15 sets, daily range): BP systolic 122–179; BP diastolic 73–124
[2021-04-22 06:12] LABS: ABSOLUTE LYMPHOCYTES 0.7 thou/uL (0.8-5.3); ABSOLUTE MONOCYTES 0.9 thou/uL (0.0-1.2); ABSOLUTE NEUTROPHILS 6.9 thou/uL (1.6-8.1); BASOPHILS 0.4 %; EOSINOPHILS 0.4 %; HEMATOCRIT 37.8 % (37.0-47.0); HEMOGLOBIN 12.5 gm/dL (12.0-15.0); LYMPHOCYTES 8.3 %; MCH 29.3 pg (26.0-34.0); MCV 88.9 fL (80.0-100.0); MPV 8.3 fl. (7.2-11.1); NUCLEATED RBCS 0 /100WBC; PLATELET COUNT* 165 thou/uL (150-400); POLYS 80.9 %; RBC 4.26 mil/uL (4.20-5.00); RDW-CV 13.9 % (10.5-14.5); WBC 8.5 thou/uL (4.0-11.0)
[2021-04-22 06:54] LABS: ALBUMIN 3.1 g/dL (3.4-5.0); CALCIUM 8.9 mg/dL (8.5-10.1); CREATININE 0.5 mg/dL (0.6-1.3); MAGNESIUM 2.2 mg/dL (1.8-2.4); POTASSIUM 3.7 mmol/L (3.5-5.1); TOTAL PROTEIN 6.8 g/dL (6.4-8.2)
--- NOTE | 2021-04-22 10:49 | EKG ---
[place] [address] ELECTROCARDIOGRAM REPORT Name: SOSA ARAIZA Room: [address] ADM IN .R.#: [id number] Admission: 04/13/21 Attend Phys: Triston Maya Discharge: Date of : 37 Date of Service: 04/22/21 0506 Report #: [id number] THIS REPORT FOR: //name// [facility] Test Date: 2021-04-22 Test Time: 05:06:37 Pat Name: SOSA ARAIZA Department: Room: [address] Gender: F Director Asset: : 1935 Requested By: Dior Nair Order Number: [id number] Truong MD: Mathew Coats Measurements Intervals [place] Rate: 102 P: 82 [place]: 170 QRS: -14 QRSD: 118 T: 75 QT: 365 QTc: 476 Interpretive Statements Sinus tachycardia LBBB Compared to ECG 04/13/2021 09:44:23 no change Electronically Signed On 04-22-2021 10:49:34 PELT SHEARER by Mathew Coats [email or web address] <ELECTRONICALLY SIGNED> By: Mathew Coats MD, [facility] 04/22/21 1049 0506 0506 Mathew Coats MD, [facility] /EPI
--- NOTE | 2021-04-22 14:09 | NUR ---
WOUND CARE: PATIENT SEEN TO ADDRESS RED AREA TO COCCYX, AREA NOTED TO BE 4x13x0 AREA RED BLANCHABE, WITH NO OPEN AREA NOTED. AREA CLEANSED AND PAT DRY, EXUDERM SATIN APPLIED. TOLERATED WELL. ARGELIA OTHER NEEDS AT THIS TIME PATINET NOT TEACHABLE AT THIS TIME RELATED TO AMS.
--- NOTE | 2021-04-22 15:41 | NUR ---
REPORT GIVEN TO WICHO. PATIENT AND BELONGINGS MOVED UPSTAIRS. CALLED SON EMKA. VM LEFT.
[2021-04-23] VITALS (7 sets, daily range): BP systolic 125–146; BP diastolic 72–93
--- NOTE | 2021-04-23 00:16 | NUR ---
PT ALERT ORIENTED. TURN Q 2 HRS. O2 AT 3 LITERS NC. BIPAP HS. MEDICARE NURSE TRACING . SUZANNE WITH YELLOW.
--- NOTE | 2021-04-23 03:11 | NUR ---
BIPAP ON UNTIL 0300.
[2021-04-23 06:35] LABS: HEMATOCRIT 36.3 % (37.0-47.0); HEMOGLOBIN 11.9 gm/dL (12.0-15.0); MCH 29.6 pg (26.0-34.0); MCHC 32.7 g/dL (28.0-37.0); MCV 90.3 fL (80.0-100.0); RBC 4.02 mil/uL (4.20-5.00); RDW-CV 14.3 % (10.5-14.5); WBC 8.1 thou/uL (4.0-11.0)
[2021-04-23 07:52] LABS: CALCIUM 9.2 mg/dL (8.5-10.1); CREATININE 0.3 mg/dL (0.6-1.3); POTASSIUM 3.4 mmol/L (3.5-5.1)
[2021-04-23 08:11] LABS: CHOLESTEROL 193 mg/dL (<200); HDL CHOLESTEROL 57 mg/dL (>40); LDL CHOLESTEROL 107 mg/dL (<100); SERUM ASSESSMENT Clear; TC:HDL 3.4 Ratio (Not establshd); TRIGLYCERIDE 145 mg/dL (<150); VLDL 29 mg/dL (<40)
--- NOTE | 2021-04-23 19:32 | NUR ---
ASSUMED PT CARE AT 0730.PT ALERT AND ORIENTED X1-2. ASSESSMENT COMPLETED AND PT VERY TACHY, HEART RATE 140-160. PHYSICIAN INFORMED.EKG OBTAINED. NEW ORDERS RECIEVED AND ADMINISTERED ORDERED. HEART RATE NOW IN THE 70'S AND IN SR. CARDIZEM DRIP CONTINUING AT 5ML PER HOUR. MEDICATIONS ADMINISTERED ORDERED. SAFETY MEASURES IN PLACE.
[2021-04-24] VITALS (7 sets, daily range): BP systolic 108–139; BP diastolic 62–73
[2021-04-24 00:24] LABS: BE 14.1 mmol/L (-2 to +3)
[2021-04-24 00:28] LABS: PO2 42.8 mmHg (75.0-100.0); pH 7.225 (7.340-7.450)
[2021-04-24 05:22] LABS: HEMATOCRIT 35.3 % (37.0-47.0); HEMOGLOBIN 11.3 gm/dL (12.0-15.0); MCH 29.8 pg (26.0-34.0); MCV 92.9 fL (80.0-100.0); MPV 7.8 fl. (7.2-11.1); NUCLEATED RBCS 0 /100WBC; PLATELET COUNT* 80 thou/uL (150-400); RDW-CV 14.3 % (10.5-14.5); WBC 7.1 thou/uL (4.0-11.0)
[2021-04-24 05:42] LABS: ALBUMIN 2.9 g/dL (3.4-5.0); CALCIUM 9.4 mg/dL (8.5-10.1); CREATININE 0.5 mg/dL (0.6-1.3); MAGNESIUM 2.5 mg/dL (1.8-2.4); TOTAL BILIRUBIN 0.6 mg/dL (<0.1-1.0); TOTAL PROTEIN 6.5 g/dL (6.4-8.2)
[2021-04-24 05:48] LABS: POTASSIUM 4.7 mmol/L (3.5-5.1)
[2021-04-24 07:21] LABS: ABSOLUTE LYMPHOCYTES 0.6 thou/uL (0.8-5.3); ABSOLUTE MONOCYTES 0.2 thou/uL (0.0-1.2); ABSOLUTE NEUTROPHILS 6.2 thou/uL (1.6-8.1)
[2021-04-24 07:22] LABS: PLATELET ESTIMATE ADEQUATE
[2021-04-24 08:38] LABS: BE 13.4 mmol/L (-2 to +3); PO2 85.2 mmHg (75.0-100.0); pH 7.387 (7.340-7.450)
[2021-04-24 08:47] LABS: PCO2 70.5 mmHg (35.0-45.0)
--- NOTE | 2021-04-24 09:51 | NUR ---
PT IS ABLE TO COMMUNICATE HER NEEDS TO STAFF WITH DIFFICULTY; ALERT STATUS HAS IMPROVED SINCE SHE WAS PLACED ON THE BIPAP LAST NIGHT; SHE CAN ANSWER QUESTIONS WITH A YES/NO HEAD SHAKE AND WILL FOLLOW SOME COMMANDS NOW; MD IS AWARE OF STATUS AND CONSULTED NEUROLOGY. SHE HAS DENIED THE NEED FOR PAIN MEDICATION UP TO 0700 THIS MORNING. PALACIOS HAS BEEN PATENT UP TO 0700 THIS MORNING. CARDIZEM GTT MAINTAINED PER MD ORDER. PT NOT TAKING PO MEDS OVERNIGHT D/T SOMEWHAT NON-RESPONSIVE STATE.
--- NOTE | 2021-04-24 10:47 | EKG ---
[place] [address] ELECTROCARDIOGRAM REPORT Name: SOSA ARAIZA Room: [address] ADM IN .R.#: [id number] Admission: 04/13/21 Attend Phys: Triston Maya Discharge: Date of : 37 Date of Service: 04/23/21 2316 Report #: [id number] THIS REPORT FOR: //name// [facility] Test Date: 2021-04-23 Test Time: 23:16:35 Pat Name: SOSA ARAIZA Department: Room: [address] Gender: F Database Engineer: TIFFANY : 1935 Requested By: Roberta Dial Order Number: [id number] Truong MD: Mathew Coats Measurements Intervals [place] Rate: 72 P: 53 VA: 165 QRS: 7 QRSD: 121 T: 32 QT: 439 QTc: 481 Interpretive Statements Sinus rhythm Left bundle branch block Compared to ECG 04/22/2021 05:06:37 atrial fibrillation no longer present Electronically Signed On 04-24-2021 10:47:32 [employer] ENGLISH TEACHER by Mathew Coats [email or web address] <ELECTRONICALLY SIGNED> By: Mathew Coats MD, FAC 04/24/21 1047 2316 2316 Mathew Coats MD, [facility] /EPI
[2021-04-24 12:15] LABS: CALCIUM 9.5 mg/dL (8.5-10.1); CREATININE 0.6 mg/dL (0.6-1.3); POTASSIUM 4.6 mmol/L (3.5-5.1)
[2021-04-24 17:03] LABS: PO2 87.7 mmHg (75.0-100.0); pH 7.377 (7.340-7.450)
[2021-04-24 17:07] LABS: PCO2 71.7 mmHg (35.0-45.0)
--- NOTE | 2021-04-24 18:45 | NUR ---
ASSUMED PT CARE AT 0730. PT IS ON BIPAP, NPO AND RESTING QUIETLY.ASSESSMENT COMPLETED AND PT IS LETHARGIC BUT RESPONDS TO VERBAL AND TACTILE STIMULI. THIS AFTERNOOON NEW ORDERS TO TAKE PT OFF THE BIPAP, PLACE ON ROOMAIR AND MONITOR O2 SATS. PT MAINTAINING O2 SATS 95-97 ON 3L NC. PT TO BE PLACED ON BIPAP AT HS AND PRN.PT SITTING UP IN BED WITH TV ON. NO CONCERNS NOTED AT THIS TIME.+
[2021-04-25 00:54] VITALS: BP 107/61
[2021-04-25 04:30] VITALS: BP 124/75
[2021-04-25 04:33] LABS: ABSOLUTE LYMPHOCYTES 0.4 thou/uL (0.8-5.3); ABSOLUTE MONOCYTES 0.3 thou/uL (0.0-1.2); ABSOLUTE NEUTROPHILS 6.8 thou/uL (1.6-8.1); BASOPHILS 0.1 %; HEMATOCRIT 32.7 % (37.0-47.0); HEMOGLOBIN 10.8 gm/dL (12.0-15.0); LYMPHOCYTES 5.3 %; MCH 30.2 pg (26.0-34.0); MCV 91.7 fL (80.0-100.0); MONOCYTES 4.4 %; MPV 7.8 fl. (7.2-11.1); NUCLEATED RBCS 0 /100WBC; PLATELET COUNT* 79 thou/uL (150-400); POLYS 90.2 %; RBC 3.56 mil/uL (4.20-5.00); RDW-CV 14.2 % (10.5-14.5); WBC 7.5 thou/uL (4.0-11.0)
[2021-04-25 04:50] LABS: ALBUMIN 2.8 g/dL (3.4-5.0); APTT 34.2 Seconds (25.0-31.3); CALCIUM 9.1 mg/dL (8.5-10.1); CREATININE 0.6 mg/dL (0.6-1.3); INR 1.2; MAGNESIUM 2.5 mg/dL (1.8-2.4); POTASSIUM 4.3 mmol/L (3.5-5.1); PROTIME 11.9 Seconds (9.20-11.50); TOTAL BILIRUBIN 0.8 mg/dL (<0.1-1.0)
[2021-04-25 08:00] VITALS: BP 120/71
--- NOTE | 2021-04-25 09:48 | NUR ---
PT STABLE. NPO FOR ASPIRATION RISK. SUZANNE PATENT OF 699 TODAY. CARDIZEM GTT MAINTAINED PER MD ORDER.
--- NOTE | 2021-04-25 11:47 | CON ---
[address] [address] CONSULTATION Name: SOSA ARAIZA Room: [address] IN M.R.#: [id number] Admission: 04/13/21 Attend Phys: Mirta Toribio Discharge: Date of : 37 Report #: [id number] THIS REPORT FOR: cc: Bharat Haines MD, Jason MD Blick,Mathew Zamora MD [facility] ~ DATE OF CONSULTATION: 04/22/2021 CARDIOLOGY CONSULTATION HISTORY OF PRESENT ILLNESS: The patient is an 85-year-old single white female who I was asked to see in the hospital today because of an abnormal ECG. Unfortunately, there are no old records available. There are no family members available. Therefore, the history was obtained from the patient herself. She previously lived in [place] and moved to the [facility] recently to live with family members. She states she has a history of shortness of breath and saw a linotype operator in [place] in the past. She was brought to the Emergency Room 10 days ago by paramedics. Apparently, she was short of breath and ambulance was called. When EMS arrived, she was short of breath and tachypneic. She had low saturations. She was given a breathing treatment. She was intubated by paramedics. She was brought here to [place]. She eventually was able to be extubated. She was noted to have an abnormal ECG and Cardiology consultation was requested. PAST MEDICAL HISTORY: She denies any significant surgical procedures. She apparently has a history of high blood pressure. MEDICATIONS AT HOME: Include albuterol treatments, diltiazem. ALLERGIES: She has no known drug allergies. FAMILY HISTORY: Positive for heart disease. SOCIAL HISTORY: She is , lives with a son here in [place]. No smoking. Rarely drinks alcohol. REVIEW OF SYSTEMS: There is no history of stroke. She does have home oxygen. No history of kidney disease, cancer, psychiatric illness, chronic skin condition. PHYSICAL EXAMINATION: GENERAL: Revealed an elderly, frail-appearing female, lying in bed. She appeared in no distress. VITAL SIGNS: She had a blood pressure of 140/80, pulse is 90. [place] [address] CONSULTATION Name: SOSA ARAIZA Room: [address]#: [id number] Admission: 04/13/21 Attend Phys: Mirta Toribio Discharge: Date of : 37 Report #: [id number] HEENT: She was anicteric. Conjunctivae pink. Mucous membranes are moist. NECK: Veins not appear distended. CHEST: Revealed crackles bilaterally. CARDIAC: Regular rate and rhythm, no significant murmur. ABDOMEN: Soft. EXTREMITIES: Had no pitting edema. Dorsalis pedis pulses 1+ bilaterally. SKIN: Cool and dry. NEUROLOGIC: Nonfocal. LABORATORY DATA: ECG shows a sinus rhythm with a left bundle branch block. On the monitor, the patient remains in a sinus rhythm. She does have occasional PACs and episodes of sinus tachycardia. She had an echocardiogram after she was admitted that showed mild reduction in left ventricular systolic function with an ejection fraction of 45%, left ventricular hypertrophy. There was evidence of mild aortic stenosis with a peak gradient across the aortic valve leaflets of 14 mmHg. There was trace mitral and mild tricuspid insufficiency. Her x-rays; she had a CT scan of the head on admission that showed no acute abnormality, atrophy was noted. She had a CT scan of the chest on admission that showed no pulmonary embolus, multifocal pneumonia was noted. Her venous duplex scan of the legs showed no evidence of DVT. She had a followup chest x-ray performed this morning that showed improvement of her bilateral infiltrates. Her lab work albumin 3.1. High sensitivity troponin was 166. BNP 3945, hematocrit 37.8. IMPRESSION AND RECOMMENDATIONS: 1. Pneumonia. The patient now extubated. Appears to be improving. 2. Mild dementia. 3. Left bundle branch block. 4. History of hypertension. The patient has been on a calcium jace in the past. 5. Chronic obstructive pulmonary disease. The patient on home oxygen. <ELECTRONICALLY SIGNED> By: Mathew Coats MD, FACC 04/25/21 1147 0811 [id number] Coats MD, FACC /nt
[2021-04-25 12:00] VITALS: BP 102/66
--- NOTE | 2021-04-25 15:27 | EKG ---
[place] [address] ELECTROCARDIOGRAM REPORT Name: MARTIN ARAIZAOTHY Daniel Room: [address] ADM IN M.R.#: [id number] Admission: 04/13/21 Attend Phys: Triston Maya Discharge: Date of : 37 Date of Service: 04/23/21 0839 Report #: [id number] THIS REPORT FOR: //name// [facility] Test Date: 2021-04-23 Test Time: 08:39:48 Pat Name: SOSA ARAIZA Department: Room: [address] Gender: F Trimmer Meat: LUTHER : 1935 Requested By: Triston Maya Order Number: [id number] Truong MD: Carl Villegas Measurements Intervals [place] Rate: 152 P: CT: QRS: -10 QRSD: 115 T: 84 QT: 324 QTc: 516 Interpretive Statements Atrial fibrillation with rapid V-rate Ventricular premature complex Left ventricular hypertrophy Anterior infarct of indeterminate age must be considered Compared to ECG 04/22/2021 05:06:37 Ventricular premature complex(es) now present Left ventricular hypertrophy now present Myocardial infarct finding now present Sinus tachycardia no longer present Left bundle-branch block no longer present Electronically Signed On 04-25-2021 15:27:12 DITCH DIGGER by Carl Villegas [email or web address] <ELECTRONICALLY SIGNED> By: Carl Villegas MD, [facility] 04/25/21 1527 0839 Carl Villegas MD, [facility] /EPI
[2021-04-25 16:00] VITALS: BP 108/71
--- NOTE | 2021-04-25 16:12 | 2DMMODE ---
[place] [address] 2 D/M-MODE ECHOCARDIOGRAM Name: SOSA ARAIZA Room: [facility] IN .R.#: [id number] Admission: 04/13/21 Attend Phys: Triston Maya Discharge: Date of : 37 Date of Service: 04/25/21 1612 Report #: [id number] THIS REPORT FOR: cc: Bharat Haines MD, Jason MD Holkins,Carl Taylor MD [facility] ~ APPROVED REPORT Study performed: 04/25/2021 13:47:32 EXAM: Limited 2D Echocardiogram Patient Location: In-Patient Room #: [facility] Status: routine BSA: 1.29 HR: 112 bpm BP: 124/75 mmHg Rhythm: NSR Other Information Study Quality: Good Indications Reassess PA systolic Tricuspid Valve RAP Estimate: 5.00 mmHg TR Peak Gr.: 29.36 mmHg RVSP: 34.00 mmHg PA Pressure: 34.00 mmHg Left Ventricle The left ventricle is normal size. There is normal LV segmental wall motion. Moderate concentric left ventricular hypertrophy. Left ventricular systolic function is moderately decreased. LVEF is 40%. Right Ventricle Right ventricle is mildly dilated. The right ventricular systolic function is normal. Atria Right atrium is dilated. Aortic Valve Moderate aortic valve sclerosis. [facility] [address] [place] [address] 2 D/M-MODE ECHOCARDIOGRAM Name: SOSA ARAIZA Room: [address] [facility] IN M.R.#: [id number] Admission: 04/13/21 Attend Phys: Triston Maya Discharge: Date of : 37 Date of Service: 04/25/211611 Report #: [id number] Mitral Valve The mitral valve is normal in structure. Tricuspid Valve Mild tricuspid regurgitation. Mild pulmonary hypertension. Pulmonic Valve The pulmonary valve is normal in structure. Great Vessels The aortic root is normal in size. IVC is normal in size and collapses >50% with inspiration. Pericardium There is no pericardial effusion. <Conclusion> The left ventricle is normal size. Moderate concentric left ventricular hypertrophy. Left ventricular systolic function is moderately decreased LVEF is 40%. Right ventricle is mildly dilated. The right ventricular systolic function is normal. Moderate aortic valve sclerosis. The mitral valve is normal in structure. Mild tricuspid regurgitation. Mild pulmonary hypertension. IVC is normal in size and collapses >50% with inspiration. There is no pericardial effusion. There is normal LV segmental wall motion. <ELECTRONICALLY SIGNED> By: Carl Villegas MD, [facility] 04/25/211611 11 1612 Carl Villegas MD, FACC /INF
--- NOTE | 2021-04-25 17:41 | NUR ---
PLAN OF CARE: PT IS AN ICU TRANSFER. PT TELE STATUS AT THIS TIME. INITIAL PLAN INDICATED THAT PT MAY BENEFIT FROM SNF AT D/C. PT WILL NEED PT/OT EVALS TO ASSIST WITH THIS. CM WILL REMAIN AVAILABLE TO ASSIST AND FOLLOW NEEDED.
[2021-04-25 20:00] VITALS: BP 105/64
[2021-04-26 00:20] VITALS: BP 102/62
[2021-04-26 04:21] VITALS: BP 139/70
[2021-04-26 04:56] LABS: ABSOLUTE LYMPHOCYTES 0.3 thou/uL (0.8-5.3); ABSOLUTE MONOCYTES 0.3 thou/uL (0.0-1.2); ABSOLUTE NEUTROPHILS 6.7 thou/uL (1.6-8.1); HEMATOCRIT 29.6 % (37.0-47.0); HEMOGLOBIN 9.8 gm/dL (12.0-15.0); LYMPHOCYTES 4.3 %; MCH 29.9 pg (26.0-34.0); MCV 90.6 fL (80.0-100.0); MONOCYTES 3.7 %; MPV 8.2 fl. (7.2-11.1); NUCLEATED RBCS 0 /100WBC; PLATELET COUNT* 61 thou/uL (150-400); RBC 3.27 mil/uL (4.20-5.00); RDW-CV 13.6 % (10.5-14.5); WBC 7.3 thou/uL (4.0-11.0)
[2021-04-26 05:20] LABS: ALBUMIN 2.5 g/dL (3.4-5.0); CALCIUM 9.1 mg/dL (8.5-10.1); CREATININE 0.6 mg/dL (0.6-1.3); MAGNESIUM 2.3 mg/dL (1.8-2.4); POTASSIUM 4.1 mmol/L (3.5-5.1); TOTAL BILIRUBIN 0.8 mg/dL (<0.1-1.0); TOTAL PROTEIN 5.8 g/dL (6.4-8.2)
--- NOTE | 2021-04-26 06:16 | NUR ---
PT SLEPT MOST OF SHIFT. ASSESSMENT DOCUMENTED. MEDS GIVEN PER E-MAR. PICC PATENT. PALACIOS PATENT AND DRAINING TO DEPENDANT DRAINAGE. FALL PRECAUTIONS IN PLACE. PT ON BIPAP WHILE SLEEPING, TOLERATED WELL. PT ANSWERS SOME QUESTIONS APPROPRIATLY, BUT DOES NOT ANSWER ALL QUESTIONS. WILL CONTINUE WITH PLAN OF CARE.
[2021-04-26 08:00] VITALS: BP 119/67
--- NOTE | 2021-04-26 08:58 | EKG ---
[place] [address] ELECTROCARDIOGRAM REPORT Name: SOSA ARAIZA Room: [address] ADM IN M.R.#: [id number] Admission: 04/13/21 Attend Phys: Triston Maya Discharge: Date of : 37 Date of Service: 04/25/21 1652 Report #: [id number] THIS REPORT FOR: //name// [facility] Test Date: 2021-04-25 Test Time: 16:52:26 Pat Name: SOSA ARAIZA Department: Room: [address] Gender: F Normalizer: KF : 1935 Requested By: Mathew Coats Order Number: [id number] Truong MD: Gareth Luna Measurements Intervals [place] Rate: 117 P: [place]: QRS: -28 QRSD: 113 T: -87 QT: 341 QTc: 476 Interpretive Statements Atrial flutter Incomplete left bundle branch block compared to ECG 04/23/2021 23:16:35 Early repolarization now present Q waves now present Sinus rhythm no longer present Left bundle-branch block no longer present Electronically Signed On 04-26-2021 8:57:53 DRAWBRIDGE TENDER by Gareth Luna [email or web address] <ELECTRONICALLY SIGNED> By: Gareth Luna MD, FACC 04/26/21 0857 51 51 Gareth Luna MD, FACC /EPI
--- NOTE | 2021-04-26 10:31 | NUR ---
PLAN OF CARE: CM SPOKE TO THE PT'S SON MEKA AT THE BEDSIDE TO DISCUSS D/C PLANNING, AND SNF PLACEMENT. PT'S SON INFORMS OF SNF CHOICES #1 [facility], #2 [facility], AND #3 [facility]. CM FAXED INITIAL SNF REFERRAL TO [facility], AND AWAITING RETURN CALL. CM WILL REMAIN AVAILABLE TO ASSIST AND FOLLOW NEEDED.
--- NOTE | 2021-04-26 11:23 | NUR ---
WOUND NURSE; PATIENT SEEN TO ADDRESS MINOR LESON ON SACRUM AND BUTTOCKS. PRESENTS WITH PINKISH RED, NONBLANCHEABLE INTACT SKIN. CLEANSED WITH PERIWIPES AND LET DRY. APPLIED SACRAL BORDERED FOAM FOR PROTECTION PATIENT WITH PROMINANT BONY PROMINENCES AND COMPROMISED BENJAMIN SCALE D/T MALNOURISHED AND UNABLE TO REPOSITION SELF. ARTIS MATTRESS ORDERED. PATIENT IS NOT TEACHEABLE AT THIS TIME.
[2021-04-26 11:37] VITALS: BP 125/75
[2021-04-26 11:44] LABS: PO2 80.8 mmHg (75.0-100.0); pH 7.426 (7.340-7.450)
[2021-04-26 11:49] LABS: PCO2 61.8 mmHg (35.0-45.0)
[2021-04-26 16:13] VITALS: BP 128/69
[2021-04-26 20:01] VITALS: BP 112/57
--- NOTE | 2021-04-26 23:33 | NUR ---
PT REFUSES BIPAP TONIGHT. HAVE HER ON 6L-NC AND DOING OK FOR THE MOMENT. SAT AT 85-90% AT THIS TIME
--- NOTE | 2021-04-26 23:37 | NUR ---
PT REFUSES BIPAP, HALDOL UNSUCCESSFUL DR HICKS NOTIFIED
[2021-04-27] VITALS: BP 155/94
[2021-04-27 04:08] VITALS: BP 125/76
--- NOTE | 2021-04-27 04:24 | NUR ---
PT ALERT AND ORIENTED X2-3. ABSOLUTELY REFUSED BIPAP AT NIGHT BUT DID WEAR NASAL CANNULA AT 3-5L OVERNIGHT AND SAT IN LOW 90'S. Q2 TURN, AMIODARONE DRIP AT 17 MLS STILL, FLUILDS AT 80 MLS. STILL NPO DUE TO FAILED SWALLOW STUDY. PICC LINE FLUSHES WELL AND WAS ABLE TO DRAW BLOOD OUT OF IT. SHE DID COMMUNICATE SOME WITH SIMPLE YES AND NO ANSWERS BUT DID NOT SAY TOO MUCH. PUREWICK IN PLACE, PT DRY AND SKIN INTACT. WILL CONTINUE TO MONITOR.
[2021-04-27 04:46] LABS: ABSOLUTE LYMPHOCYTES 0.2 thou/uL (0.8-5.3); ABSOLUTE MONOCYTES 0.2 thou/uL (0.0-1.2); BASOPHILS 0.1 %; HEMATOCRIT 30.5 % (37.0-47.0); HEMOGLOBIN 10.1 gm/dL (12.0-15.0); LYMPHOCYTES 2.4 %; MCH 29.6 pg (26.0-34.0); MCHC 33.2 g/dL (28.0-37.0); MCV 89.1 fL (80.0-100.0); MONOCYTES 2.1 %; MPV 8.7 fl. (7.2-11.1); NUCLEATED RBCS 0 /100WBC; PLATELET COUNT* 57 thou/uL (150-400); POLYS 95.4 %; RBC 3.42 mil/uL (4.20-5.00); RDW-CV 13.5 % (10.5-14.5); WBC 7.3 thou/uL (4.0-11.0)
[2021-04-27 05:15] LABS: ALBUMIN 2.6 g/dL (3.4-5.0); CALCIUM 8.8 mg/dL (8.5-10.1); CREATININE 0.6 mg/dL (0.6-1.3); POTASSIUM 3.8 mmol/L (3.5-5.1); TOTAL BILIRUBIN 0.6 mg/dL (<0.1-1.0)
[2021-04-27 09:10] VITALS: BP 119/70
[2021-04-27 12:00] VITALS: BP 132/68
--- NOTE | 2021-04-27 14:44 | NUR ---
PLAN OF CARE: PHYSICIAN INFORMS OF PT AND SON/DPOA'S DESIRE TO PURSUE HOSPICE. CM SPO[facility] PT AND [facility] AT [facility] AND THEY REQUEST HOSPICE AT A LTC FACILITY PRIVATE PAY. PT'S SON INFORMS OF LTC CHOICES OF #1 [facility], AND #2 [facility], #3 [facility]. CM FAXED PT'S CLINICAL INFO TO [facility]. CM AWAITING A RETURN CALL TO DISCUSS BED AVAILABILITY AND ABI[facility] TO ACCEPT PT. CM WILL REMAIN AVAILABLE TO ASSIST AND FOLLOW NEEDED.
[2021-04-27 16:00] VITALS: BP 115/64
[2021-04-28] VITALS: BP 119/75
[2021-04-28 04:00] VITALS: BP 134/75
--- NOTE | 2021-04-28 07:00 | NUR ---
CHANGE OF SHIFT REPORT GIVEN PATIENT SEEN AT BEDSIDE, IN BED RESTIMG ASSUMED PATIENT CARE
[2021-04-28 08:00] VITALS: BP 127/75
--- NOTE | 2021-04-28 08:11 | NUR ---
PATIENT HAS RESTED WELL THROUGHOUT MOST OF THE NIGHT. VSS ON 3L 02 VIA [employer] CANNULA. PATIENT HAS REMAINED NPO. RIGHT UPPER ARM PICC-SL AND RIGHT FOREARM-SL. FALL PRECAUTIONS IN PLACE AND HOURLY ROUNDS MADE. WILL CONTINUE WITH PLAN OF CARE AND NURSING TO MONITOR.
[2021-04-28 11:37] VITALS: BP 118/70
[2021-04-28] MEDS ORDERED: MORPHINE S100 MG/51 SUBLING (13:27)
[2021-04-28 15:29] VITALS: BP 118/70
--- NOTE | 2021-04-28 16:48 | NUR ---
PLAN FOR THE PT TO D/C TO [facility] TODAY WITH [facility]. PT'S SON IN AGREEMENT. RN TO CALL REPORT. [facility] STRETCHER NON-EMERGENT TRANSPORT ARRANGED FOR 163. CM WILL REMAIN AVAILABLE TO ASSIST AND FOLLOW NEEDED. [facility] PHONE: [phone] [facility] NON-EMERGENT TRANSPORT PHONE: [phone]
--- NOTE | 2021-04-28 17:00 | NUR ---
PATIENT DISCHARGED TO SNF WITH HOSPICE IV AND HEART MONITOR REMOVED PERSONAL BELONGINGS RETURNED TELEPHONE REPORT GIVEN TO CLAUDIO SHIELDS AT [facility] FAMILY NOTIFIED PATIENT LEFT ON STRETCHER VIA AMBULANCE
== END 2021-04-28 16:53 | disposition hospice, inpatient (51) | DRG 207 ==
LOC: M.ERS 09:31 → M.ICU 10:56 → M.TBA-ER 10:56 → M.ICU 13:36 → M.2W 04-22 15:51
PROVIDERS: Emergency Medicine Emergency Medical Services; Internal Medicine; Internal Medicine Cardiovascular Disease; Internal Medicine Critical Care Medicine; Pediatrics; ADMIT Internal Medicine; ATTEND Internal Medicine
PROC: 5A1955Z Respiratory Ventilation, Greater than 96 Consecutive Hours (ICD-10-PCS; 2021-04-13)
PROC: 0BH17EZ Insertion of Endotracheal Airway into Trachea, Via Natural or Artificial Opening (ICD-10-PCS; principal; 2021-04-17)
PROC: XW033E5 Introduction of Remdesivir Anti-infective into Peripheral Vein, Percutaneous Approach, New Technology Group 5 (ICD-10-PCS; 2021-04-17)
PROC: 05HB33Z Insertion of Infusion Device into Right Basilic Vein, Percutaneous Approach (ICD-10-PCS; 2021-04-18)
PROC: 02HV33Z Insertion of Infusion Device into Superior Vena Cava, Percutaneous Approach (ICD-10-PCS; 2021-04-18)
PROC: 5A09357 Assistance with Respiratory Ventilation, Less than 24 Consecutive Hours, Continuous Positive Airway Pressure (ICD-10-PCS; 2021-04-23)
PROC: 5A09357 Assistance with Respiratory Ventilation, Less than 24 Consecutive Hours, Continuous Positive Airway Pressure (ICD-10-PCS; 2021-04-24)
PROC: 5A09357 Assistance with Respiratory Ventilation, Less than 24 Consecutive Hours, Continuous Positive Airway Pressure (ICD-10-PCS; 2021-04-26)
DX: J96.22 Acute and chronic respiratory failure with hypercapnia (principal); R65.11 Systemic inflammatory response syndrome (SIRS) of non-infectious origin with acute organ dysfunction; G93.41 Metabolic encephalopathy; I50.21 Acute systolic (congestive) heart failure; J15.6 Pneumonia due to other Gram-negative bacteria; N39.0 Urinary tract infection, site not specified; E87.0 Hyperosmolality and hypernatremia; I48.92 Unspecified atrial flutter; I42.9 Cardiomyopathy, unspecified; J44.0 Chronic obstructive pulmonary disease with (acute) lower respiratory infection; J44.1 Chronic obstructive pulmonary disease with (acute) exacerbation; Z20.822 Contact with and (suspected) exposure to COVID-19; I11.0 Hypertensive heart disease with heart failure; Z79.01 Long term (current) use of anticoagulants; I48.0 Paroxysmal atrial fibrillation; D69.6 Thrombocytopenia, unspecified; D64.9 Anemia, unspecified; J96.21 Acute and chronic respiratory failure with hypoxia; Z66 Do not resuscitate; F03.90 Unspecified dementia, unspecified severity, without behavioral disturbance, psychotic disturbance, mood disturbance, and anxiety; Z51.5 Encounter for palliative care